=== PATIENT | male | born 1970 | race Hispanic/Latino ===

== ENCOUNTER 2017-11-10 08:39 | Observation (INO) | payer MEDICAID, OTHER ==
[2017-11-10 08:47] VITALS: BMI 25.8
[2017-11-10 10:07] LABS: BASO # 0.1 K/uL (0.0-0.2); BASO % 1.2 % (0.0-2.0); EOS # 0.1 K/uL (0.0-0.7); EOS % 2.2 % (0.0-4.0); HEMOGLOBIN 16.2 g/dL (12.0-18.0); LYMPH # 1.8 K/uL (1.0-4.3); LYMPH % 34.7 % (20.0-40.0); MEAN CORPUSCULAR HGB CONC 34.9 g/dL (33.0-37.0); MEAN PLATELET VOLUME 9.6 fl (7.2-11.7); MONO # 0.4 K/uL (0.0-0.8); MONO % 7.1 % (0.0-10.0); NEUT # 2.9 K/uL (1.8-7.0); NEUT % 54.8 % (50.0-75.0); NRBC % 0.1 % (0.0-0.0); RBC 5.38 Mil/uL (4.40-5.90); WHITE BLOOD COUNT 5.3 K/uL (4.8-10.8)
[2017-11-10 10:17] LABS: ALB/GLOB RATIO 1.4 (1.0-2.1); ALBUMIN 4.2 g/dL (3.5-5.0); ALT/SGPT 35 U/L (21-72); AST/SGOT 20 U/L (17-59); BLOOD UREA NITROGEN 14 mg/dl (9-20); CALCIUM 9.1 mg/dL (8.4-10.2); GFR AFRICAN-AMERICAN > 60; GFR NON-AFRICAN AMERICAN > 60
--- NOTE | 2017-11-10 10:47 | RAD ---
HISTORY: chest pain COMPARISON: No prior. TECHNIQUE: Chest PA and lateral FINDINGS: LUNGS: No active pulmonary disease. PLEURA: No significant pleural effusion identified. No pneumothorax apparent. CARDIOVASCULAR: Normal. OSSEOUS STRUCTURES: No significant abnormalities. VISUALIZED UPPER ABDOMEN: Normal. OTHER FINDINGS: None. IMPRESSION: No active disease.
--- NOTE | 2017-11-10 10:47 | ED PDOC ---
HPI: Chest Pain Time Seen by Provider: 11/10/17 08:45 Chief Complaint (Nursing): Chest Pain Chief Complaint (Provider): Chest Pain History Per: Patient History/Exam Limitations: no limitations Onset/Duration Of Symptoms: Days (x 2) Current Symptoms Are (Timing): Still Present Quality: Aching Exacerbating Factors: None Alleviating Factors: None Additional Complaint(s): 47 year old male presents to the ED with left sided, non radiating, aching chest pain since yesterday. Patient reports nothing alleviates or exacerbates that pain. He is here on a visa from [place]. Denies fever, shortness of breath and cough. PMD: none (in [place]) Past Medical History Reviewed: Historical Data, Nursing Documentation, Vital Signs Vital Signs: Last Vital Signs Temp 98.8 F 11/11/17 12:21 Pulse 63 11/11/17 12:21 Resp 20 11/11/17 12:21 BP 109/71 11/11/17 12:21 Pulse Ox 95 11/11/17 12:21 - Medical History PMH: No Chronic Diseases - Surgical History Surgical History: No Surg Hx - Family History Family History: States: Unknown Family Hx - Social History Current smoker - smoking cessation education provided: No Alcohol: None Drugs: Denies - Home Medications Home Medications: Ambulatory Orders Medication Instructions Recorded Aspirin [Ecotrin] 81 mg PO DAILY #30 tabec 11/11/17 MetFORMIN ER [Glucophage XR] 500 mg PO DAILY #30 ter 11/11/17 Rosuvastatin Calcium [Crestor] 20 mg PO DAILY #30 tablet 11/11/17 - Allergies Allergies/Adverse Reactions: Allergies Allergy/AdvReac Type Severity Reaction Status Date / Time No Known Allergies Allergy Verified 11/10/17 08:51 Review of Systems ROS Statement: Except As Marked, All Systems Reviewed And Found Negative Constitutional: Negative for: Fever Cardiovascular: Positive for: Chest Pain Respiratory: Negative for: Cough, Shortness of Breath Physical Exam - Reviewed Nursing Documentation Reviewed: Yes Vital Signs Reviewed: Yes - Physical Exam Appears: Positive for: Non-toxic, No Acute Distress Head Exam: Positive for: ATRAUMATIC, NORMAL INSPECTION, NORMOCEPHALIC Skin: Positive for: Normal Color, Warm, Dry Eye Exam: Positive for: EOMI, Normal appearance, PERRL Neck: Positive for: Normal, Painless ROM, Supple Cardiovascular/Chest: Positive for: Regular Rate, Rhythm. Negative for: Murmur Respiratory: Positive for: Normal Breath Sounds. Negative for: Respiratory Distress Gastrointestinal/Abdominal: Positive for: Normal Exam, Soft. Negative for: Tenderness Extremity: Positive for: Normal ROM. Negative for: Deformity Neurologic/Psych: Positive for: Alert, Oriented. Negative for: Motor/Sensory Deficits - Laboratory Results Result Diagrams: 11/11/17 04:20 11/11/17 04:20 - ECG O2 Sat by Pulse Oximetry: 97 Medical Decision Making Medical Decision Making: Time; 09:25 Initial Plan: --Chest x-ray --CMP --CBC --Troponin I -- ASA 325 mg PO Labs reveal no significant abnormalities. Time: 12:36 --Patient admitted to Dr. Aldana due to a history of elevated sugar in the past and chest pain. Scribe Attestation: Documented by Sara Landin, acting as a scribe for Naima Rodriguez MD Provider Scribe Attestation: All medical record entries made by the Scribe were at my direction and personally dictated by me. I have reviewed the chart and agree that the record accurately reflects my personal performance of the history, physical exam, medical decision making, and the department course for this patient. I have also personally directed, reviewed, and agree with the discharge instructions and disposition. Disposition - Clinical Impression Clinical Impression: Chest wall pain, Chest pain - Patient ED Disposition Is Patient to be Admitted: Yes Counseled Patient/Family Regarding: Studies Performed, Diagnosis, Need For Followup - Disposition Disposition Time: 12:05 Condition: FAIR - Pt Status Changed To: Hospital Disposition Of: Observation
--- NOTE | 2017-11-10 14:20 | CP.PCM.HP ---
History of Present Illness - History of Present Illness History of Present Illness: CC: chest pain HPI: 47 y/o man w/ no pmh presents to the ED w/ Chest pain. Patient reports chest pain started yesterday afternoon while commuting home from work. Patient initially went to urgent care center and was referred to go to ED to rule out ACS. Patient states pain is midsternal, pressure-like in nature, non-radiating , no previous episodes, intermittent, no medications taken, and no alleviating/ exacerbating factors. The patient is a former smoker, smoked 1 pack/day for 23 years. Patient denies alcohol and illegal drugs. Patient denies headaches, dizziness, abdominal pain, nausea, vomiting, diarrhea, dysuria, or fever. PMD: none, on work visa from [place] PMH: none meds: none PSH: none Fam: denies SOC: former smoker, quit 10 years ago, smoked 1 pack/day for 23 years, denies alcohol and illegal drugs ROS: 12 points assessed and negative unless otherwise reported in HPI Present on Admission - Present on Admission Any Indicators Present on Admission: No History of DVT/PE: No History of Uncontrolled Diabetes: No Urinary Catheter: No Decubitus Ulcer Present: No Review of Systems - Review of Systems All systems: reviewed and no additional remarkable complaints except - Constitutional Constitutional: absent: Chills, Fever, Headache - EENT Eyes: absent: Change in Vision - Cardiovascular Cardiovascular: As Per HPI, Chest Pain. absent: Palpitations, Pedal Edema - Respiratory Respiratory: absent: Dyspnea - Gastrointestinal Gastrointestinal: absent: Abdominal Pain, Diarrhea, Nausea, Vomiting - Genitourinary Genitourinary: absent: Dysuria - Integumentary Integumentary: absent: Rash - Neurological Neurological: absent: Dizziness, Headaches Past Patient History - Past Social History Alcohol: None Drugs: Denies - PSYCHIATRIC Hx Substance Use: No - SURGICAL HISTORY Hx Surgeries: No - ANESTHESIA Hx Anesthesia: No Hx Anesthesia Reactions: Yes Meds Allergies/Adverse Reactions: Allergies Allergy/AdvReac Type Severity Reaction Status Date / Time No Known Allergies Allergy Verified 11/10/17 08:51 Physical Exam - Constitutional Appears: Non-toxic, No Acute Distress - Head Exam Head Exam: ATRAUMATIC, NORMAL INSPECTION, NORMOCEPHALIC - Eye Exam Eye Exam: Normal appearance - ENT Exam ENT Exam: Mucous Membranes Moist - Neck Exam Neck exam: Positive for: Full Rom. Negative for: Tenderness - Respiratory Exam Respiratory Exam: Clear to Auscultation Bilateral. absent: Accessory Muscle Use , Decreased Breath Sounds, Rales, Rhonchi, Wheezes, Respiratory Distress - Cardiovascular Exam Cardiovascular Exam: REGULAR RHYTHM, RRR. absent: Tachycardia - GI/Abdominal Exam GI & Abdominal Exam: Normal Bowel Sounds, Soft. absent: Distended, Tenderness - Extremities Exam Extremities exam: Positive for: normal inspection. Negative for: calf tenderness - Neurological Exam Neurological exam: Alert, Oriented x3 - Skin Skin Exam: Dry, Intact, Normal Color, Warm Results - Vital Signs Recent Vital Signs: Last Vital Signs Temp 98.2 F 11/10/17 08:48 Pulse 59 L 11/10/17 13:44 Resp 20 11/10/17 13:44 BP 116/75 11/10/17 13:44 Pulse Ox 98 11/10/17 13:44 - Labs Result Diagrams: 11/10/17 09:59 11/10/17 09:59 Labs: Laboratory Results - last 24 hr 11/10/17 11/10/17 09:59 09:59 WBC 5.3 RBC 5.38 Hgb 16.2 Hct 46.3 MCV 86.0 MCH 30.0 MCHC 34.9 RDW 14.0 Plt Count 199 MPV 9.6 Neut % (Auto) 54.8 Lymph % (Auto) 34.7 [place] % (Auto) 7.1 Eos % (Auto) 2.2 Baso % (Auto) 1.2 Neut # (Auto) 2.9 Lymph # (Auto) 1.8 [place] # (Auto) 0.4 Eos # (Auto) 0.1 Baso # (Auto) 0.1 Sodium 142 Potassium 3.9 Chloride 107 Carbon Dioxide 22 Anion Gap 17 BUN 14 Creatinine 0.8 Est GFR ( Amer) > 60 Est GFR (Non-Af Amer) > 60 Random Glucose 122 H Calcium 9.1 Total Bilirubin 0.8 AST 20 ALT 35 Alkaline Phosphatase 53 Troponin I < 0.0120 Total Protein 7.3 Albumin 4.2 Globulin 3.1 Albumin/Globulin Ratio 1.4 Assessment & Plan (1) Chest pain Status: Acute - Assessment and Plan (Free Text) Plan: afebrile, non-tachycardic, normotensive EKG from Prompt MD: NSR, no acute ST elevation/depression EKG done in ED: NSR, no acute ST elevation/depression, no prolonged OR, QRS, QT , no abnormal T waves troponin <0.012 CBC and CMP WNL CXR: no active cardiopulmonary disease process protonix 20 mg PO daily f/u CBC, CMP, tropnonin x2 in AM prophylactic measures: DVT lovenox 40 mg SC daily, SCDs monitor for acute changes admit to Tele
[2017-11-10] MEDS ORDERED: Pneumococcal 23-Valent Vaccine IM ONE (15:48)
[2017-11-11 05:26] LABS: BASO # 0.1 K/uL (0.0-0.2); BASO % 1.2 % (0.0-2.0); EOS # 0.1 K/uL (0.0-0.7); EOS % 2.4 % (0.0-4.0); LYMPH # 1.9 K/uL (1.0-4.3); LYMPH % 33.6 % (20.0-40.0); MEAN CELL VOLUME 86.4 fl (80.0-94.0); MEAN CORPUSCULAR HEMOGLOBIN 30.4 pg (27.0-31.0); MEAN CORPUSCULAR HGB CONC 35.1 g/dL (33.0-37.0); MEAN PLATELET VOLUME 9.3 fl (7.2-11.7); MONO # 0.5 K/uL (0.0-0.8); NEUT % 53.8 % (50.0-75.0); RBC 5.26 Mil/uL (4.40-5.90); RED CELL DISTRIBUTION WIDTH 13.9 % (11.5-14.5); WHITE BLOOD COUNT 5.5 K/uL (4.8-10.8)
[2017-11-11 05:38] LABS: ALB/GLOB RATIO 1.6 (1.0-2.1); ALBUMIN 4.2 g/dL (3.5-5.0); ALT/SGPT 31 U/L (21-72); AST/SGOT 20 U/L (17-59); BLOOD UREA NITROGEN 14 mg/dl (9-20); GFR AFRICAN-AMERICAN > 60; GFR NON-AFRICAN AMERICAN > 60
[2017-11-11 07:52] VITALS: RESP 20
[2017-11-11] MEDS ORDERED: Pantoprazole 20 mg EC Tab PO SCH (09:00)
[2017-11-11] MEDS ORDERED: Enoxaparin 40 mg Syringe SC SCH (09:00)
--- NOTE | 2017-11-11 12:11 | CP.PCM.DIS ---
Provider - Provider Date of Admission: 11/10/17 12:36 Attending physician: Terence Aldana MD Time Spent in preparation of Discharge (in minutes): 15 Diagnosis - Discharge Diagnosis (1) Chest pain Status: Acute Hospital Course - Lab Results Lab Results: Most Recent Lab Values WBC 5.5 K/uL (4.8-10.8) 11/11/17 04:20 RBC 5.26 Mil/uL (4.40-5.90) 11/11/17 04:20 Hgb 16.0 g/dL (12.0-18.0) 11/11/17 04:20 Hct 45.5 % (35.0-51.0) 11/11/17 04:20 MCV 86.4 fl (80.0-94.0) 11/11/17 04:20 MCH 30.4 pg (27.0-31.0) 11/11/17 04:20 MCHC 35.1 g/dL (33.0-37.0) 11/11/17 04:20 RDW 13.9 % (11.5-14.5) 11/11/17 04:20 Plt Count 192 K/uL (130-400) 11/11/17 04:20 MPV 9.3 fl (7.2-11.7) 11/11/17 04:20 Neut % (Auto) 53.8 % (50.0-75.0) 11/11/17 04:20 Lymph % (Auto) 33.6 % (20.0-40.0) 11/11/17 04:20 [place] % (Auto) 9.0 % (0.0-10.0) 11/11/17 04:20 Eos % (Auto) 2.4 % (0.0-4.0) 11/11/17 04:20 Baso % (Auto) 1.2 % (0.0-2.0) 11/11/17 04:20 Neut # (Auto) 3.0 K/uL (1.8-7.0) 11/11/17 04:20 Lymph # (Auto) 1.9 K/uL (1.0-4.3) 11/11/17 04:20 [place] # (Auto) 0.5 K/uL (0.0-0.8) 11/11/17 04:20 Eos # (Auto) 0.1 K/uL (0.0-0.7) 11/11/17 04:20 Baso # (Auto) 0.1 K/uL (0.0-0.2) 11/11/17 04:20 Sodium 141 mmol/l (132-148) 11/11/17 04:20 Potassium 3.6 MMOL/L (3.6-5.0) 11/11/17 04:20 Chloride 107 mmol/L (98-107) 11/11/17 04:20 Carbon Dioxide 25 mmol/L (22-30) 11/11/17 04:20 Anion Gap 13 (10-20) 11/11/17 04:20 BUN 14 mg/dl (9-20) 11/11/17 04:20 Creatinine 0.8 mg/dl (0.8-1.5) 11/11/17 04:20 Est GFR ( Amer) > 60 11/11/17 04:20 Est GFR (Non-Af Amer) > 60 11/11/17 04:20 Random Glucose 113 mg/dL (75-110) H 11/11/17 04:20 Calcium 9.0 mg/dL (8.4-10.2) 11/11/17 04:20 Total Bilirubin 0.5 mg/dl (0.2-1.3) 11/11/17 04:20 AST 20 U/L (17-59) 11/11/17 04:20 ALT 31 U/L (21-72) 11/11/17 04:20 Alkaline Phosphatase 48 U/L (38-126) 11/11/17 04:20 Troponin I < 0.0120 ng/mL (0.00-0.120) 11/11/17 08:26 Total Protein 6.9 G/DL (6.3-8.2) 11/11/17 04:20 Albumin 4.2 g/dL (3.5-5.0) 11/11/17 04:20 Globulin 2.7 gm/dL (2.2-3.9) 11/11/17 04:20 Albumin/Globulin Ratio 1.6 (1.0-2.1) 11/11/17 04:20 Triglycerides 134 mg/DL (0-149) 11/11/17 10:58 Cholesterol 202 mg/dL (0-199) H 11/11/17 10:58 LDL Cholesterol Direct 121 mg/dL (0-129) 11/11/17 10:58 HDL Cholesterol 32 MG/DL (30-70) 11/11/17 10:58 TSH 3rd Generation 2.06 mIU/ML (0.46-4.68) 11/11/17 10:58 - Hospital Course Hospital Course: 47 y/o man w/ no pmh presents to the ED w/ Chest pain. Patient EKG in ED and repeat EKG next day were NSR with no acute changes. Patient's troponins were negative x3. Patient denies any episodes of chest pain since admission. Patient denies headaches, chest pain, SOB, abdominal pain, nausea, vomiting, diarrhea, dysuria, or fever. The patient has been seen, examined, and deemed medically fit for discharge home. Patient will be discharged w/ metformin, rosuvastatin, and aspirin. Patient will follow up w/ Dr. Aldana in 1 week. Discharge Exam - Head Exam Head Exam: ATRAUMATIC, NORMAL INSPECTION, NORMOCEPHALIC - Eye Exam Eye Exam: Normal appearance - ENT Exam ENT Exam: Mucous Membranes Moist - Neck Exam Neck exam: Full Rom - Respiratory Exam Respiratory Exam: Clear to PA & Lateral. absent: Accessory Muscle Use, Decreased Breath Sounds, Rales, Rhonchi, Wheezes, Respiratory Distress - Cardiovascular Exam Cardiovascular Exam: REGULAR RHYTHM. absent: Tachycardia - GI/Abdominal Exam GI & Abdominal Exam: Normal Bowel Sounds, Soft. absent: Distended, Tenderness - Extremities Exam Extremities exam: normal inspection - Neurological Exam Neurological exam: Alert, Normal Gait, Oriented x3 - Skin Skin Exam: Dry, Intact, Normal Color Discharge Plan - Discharge Medications Prescriptions: Aspirin [Ecotrin] 81 mg PO DAILY #30 tabec MetFORMIN ER [Glucophage XR] 500 mg PO DAILY #30 ter Rosuvastatin Calcium [Crestor] 20 mg PO DAILY #30 tablet - Follow Up Plan Condition: FAIR Disposition: HOME/ ROUTINE Instructions: Chest Pain That Is Not Caused by the Heart (DC), Chest Pain (DC) Additional Instructions: follow up w/ Dr Aldana in 1 week Referrals: Terence Aldana MD [Staff Provider] -
[2017-11-11 12:21] VITALS: BP 109/71; PULSE 63; TEMP 98.8
[2017-11-12 03:42] VITALS: O2SAT 97
== END 2017-11-11 13:24 | disposition home or self-care (01) ==
LOC: H.ER 08:39 → H.ERHOLD 12:36 → H.TEL 14:52
PROVIDERS: ADMIT Family Medicine; ATTEND Family Medicine
DX: R07.89 Other chest pain (principal); Z23 Encounter for immunization; Z79.82 Long term (current) use of aspirin; Z87.891 Personal history of nicotine dependence
CPT/HCPCS: 36415; 71046; 80053; 80061; 83036; 84443; 84484; 85025; 90471; 90732; 99285; G0378; J1650

== ENCOUNTER 2017-11-16 12:04 | Observation (INO) | payer OTHER ==
[2017-11-16 12:05] VITALS: BMI 25.8
[2017-11-16] MEDS ORDERED: Sodium Chloride 0.9% 500 ML IV STA (12:40)
--- NOTE | 2017-11-16 12:46 | ED PDOC ---
HPI: Chest Pain Time Seen by Provider: 11/16/17 12:22 Chief Complaint (Nursing): Chest Pain Chief Complaint (Provider): Chest pain History Per: Patient History/Exam Limitations: no limitations Onset/Duration Of Symptoms: Days (today morning) Current Symptoms Are (Timing): Gone Now Additional Complaint(s): Pt. with chest pain right side when he woke up in the morning. Went away after taking an aspirin. Pt. never had any other symptoms in the morning or now, specifically no dyspnea, weakness, headaches, dizziness, abd pain, leg pain, nausea, vomit. No hormone use. No long distance travel. Was admitted [address] Aldana and dc. Put on cholesterol med and metformin. Has appt with him this week. Past Medical History Reviewed: Nursing Documentation, Vital Signs Vital Signs: Last Vital Signs Temp Pulse 65 11/16/17 12:16 Resp 18 11/16/17 12:16 BP 136/71 11/16/17 12:16 Pulse Ox 96 11/16/17 12:47 - Medical History PMH: Diabetes (?), Hypercholesterolemia Denies: HIV - Surgical History Surgical History: No Surg Hx - Family History Family History: States: Unknown Family Hx - Home Medications Home Medications: Ambulatory Orders Medication Instructions Recorded Aspirin [Ecotrin] 81 mg PO DAILY #30 tabec 11/11/17 MetFORMIN ER [Glucophage XR] 500 mg PO DAILY #30 ter 11/11/17 Rosuvastatin Calcium [Crestor] 20 mg PO DAILY #30 tablet 11/11/17 - Allergies Allergies/Adverse Reactions: Allergies Allergy/AdvReac Type Severity Reaction Status Date / Time No Known Allergies Allergy Verified 11/16/17 12:16 Review of Systems ROS Statement: Except As Marked, All Systems Reviewed And Found Negative Cardiovascular: Positive for: Chest Pain Physical Exam - Reviewed Nursing Documentation Reviewed: Yes Vital Signs Reviewed: Yes - Physical Exam Appears: Positive for: Non-toxic, No Acute Distress Head Exam: Positive for: ATRAUMATIC, NORMAL INSPECTION, NORMOCEPHALIC Skin: Positive for: Normal Color, Warm, DRY Eye Exam: Positive for: EOMI, Normal appearance, PERRL ENT: Positive for: Normal ENT Inspection Neck: Positive for: Normal, Painless ROM Cardiovascular/Chest: Positive for: Regular Rate, Rhythm, Chest Non Tender. Negative for: Edema Respiratory: Positive for: CNT, Normal Breath Sounds Gastrointestinal/Abdominal: Positive for: Normal Exam, Soft. Negative for: Tenderness Back: Positive for: Normal Inspection. Negative for: L CVA Tenderness, R CVA Tenderness Extremity: Positive for: Normal ROM. Negative for: Tenderness, Pedal Edema Neurologic/Psych: Positive for: Alert, Oriented - Laboratory Results Result Diagrams: 11/16/17 13:00 11/16/17 13:00 Interpretation Of Abn Labs: no acute - ECG ECG: Positive for: Interpreted By Me, Viewed By Me ECG Rhythm: Positive for: Normal QRS, Normal ST Segment, Sinus Rhythm O2 Sat by Pulse Oximetry: 96 Pulse Ox Interpretation: Normal - Radiology X-Ray: Read By Radiologist X-Ray Interpretation: No Acute Disease - Progress ED Course And Treament: 1415: Spoke with Dr. Aldana. Pt. with repeat chest pain. Needs a stress test on a more urgent basis and more evaluation for ACS. Will admit as pt. failed outpt tx for chest pain control. Currently pain free. Dr. Aldana will admit. Took ASA today. Disposition - Clinical Impression Clinical Impression: Chest pain - Patient ED Disposition Is Patient to be Admitted: Yes Counseled Patient/Family Regarding: Studies Performed, Diagnosis - Disposition Disposition Time: 13:22 Condition: FAIR - Pt Status Changed To: Hospital Disposition Of: Observation - POA Present On Arrival: None Core Measure Indicators: Chest Pain
--- NOTE | 2017-11-16 12:57 | RAD ---
HISTORY: CHEST PAIN COMPARISON: Comparison made with prior chest radiograph dated 11/10/2017 FINDINGS: LUNGS: Low lung volumes,, crowded bronchovascular markings and mild bibasilar atelectasis. PLEURA: No significant pleural effusion identified, no pneumothorax apparent. CARDIOVASCULAR: Heart appears borderline enlarged OSSEOUS STRUCTURES: No significant abnormalities. VISUALIZED UPPER ABDOMEN: Normal. OTHER FINDINGS: None. IMPRESSION: Low lung volumes,, crowded bronchovascular markings and mild bibasilar atelectasis.
[2017-11-16 13:04] LABS: BASO # 0.1 K/uL (0.0-0.2); BASO % 1.1 % (0.0-2.0); EOS # 0.1 K/uL (0.0-0.7); EOS % 1.1 % (0.0-4.0); HEMOGLOBIN 15.5 g/dL (12.0-18.0); LYMPH # 1.5 K/uL (1.0-4.3); MEAN CELL VOLUME 86.4 fl (80.0-94.0); MEAN CORPUSCULAR HEMOGLOBIN 29.7 pg (27.0-31.0); MEAN CORPUSCULAR HGB CONC 34.4 g/dL (33.0-37.0); MEAN PLATELET VOLUME 9.6 fl (7.2-11.7); MONO # 0.4 K/uL (0.0-0.8); NEUT # 4.2 K/uL (1.8-7.0); NEUT % 66.8 % (50.0-75.0); RBC 5.21 Mil/uL (4.40-5.90); RED CELL DISTRIBUTION WIDTH 13.4 % (11.5-14.5); WHITE BLOOD COUNT 6.2 K/uL (4.8-10.8)
[2017-11-16 13:12] LABS: PARTIAL THROMBOPLASTIN TIME 31.6 Seconds (25.6-37.1); PROTHROMBIN TIME 11.2 Seconds (9.8-13.1)
[2017-11-16 13:24] LABS: ALB/GLOB RATIO 1.4 (1.0-2.1); ALBUMIN 4.2 g/dL (3.5-5.0); ALT/SGPT 29 U/L (21-72); AST/SGOT 23 U/L (17-59); BLOOD UREA NITROGEN 18 mg/dl (9-20); CALCIUM 8.9 mg/dL (8.4-10.2); GFR AFRICAN-AMERICAN > 60; GFR NON-AFRICAN AMERICAN > 60
--- NOTE | 2017-11-17 08:56 | CARD ---
APPROVED REPORT EKG Measurement Heart [id number] <Conclusion> Normal sinus rhythm Normal ECG
[2017-11-17 16:28] VITALS: RESP 16; O2SAT 95
--- NOTE | 2017-11-17 19:41 | CP.PCM.CON ---
History of Present Illness - History of Present Illness History of Present Illness: I was jenniferjed to see patient by Dr Aldana. Patient is a 47 year old male with PMH HTN, DM, who presents with chest pain. his symptoms started one week ago, and he was noted to have substernal chest pressure. The patient was discharged home with negative cardiac enzymes. His symptoms recurred and he was readmitted. The patient describes associated dyspnea. The patient is pain free currently Review of Systems - Constitutional Constitutional: absent: As Per HPI, Anorexia, Chills, Daytime Sleepiness, Excessive Sweating, Fatigue, Fever, Frequent Falls, Headache, Increased Appetite , Lethargy, Malaise, Night Sweats, Snoring, Sleep Apnea, Weight Gain, Weight Loss, Weakness, Other - EENT Eyes: absent: As Per HPI, Blind Spots, Blurred Vision, Change in Vision, Decreased Night Vision, Diplopia, Discharge, Dry Eye, Exophthalmos, Floaters, Irritation, Itchy Eyes, Loss of Peripheral Vision, Pain, Photophobia, Requires Corrective Lenses, Sees Flashes, Spots in Vision, Tunnel Vision, Other Visual Disturbances, Loss of Vision, Other Ears: absent: As Per HPI, Decreased Hearing, Ear Discharge, Ear Pain, Tinnitus, Abnormal Hearing, Disequilibrium, Dizziness, Other Nose/Mouth/Throat: absent: As Per HPI, Epistaxis, Nasal Congestion, Nasal Discharge, Nasal Obstruction, Nasal Trauma, Nose Pain, Post Nasal Drip, Sinus Pain, Sinus Pressure, Bleeding Gums, Change in Voice, Dental Pain, Dry Mouth, Dysphagia, Halitosis, Hoarsness, Lip Swelling, Mouth Lesions, Mouth Pain, Odynophagia, Sore Throat, Throat Swelling, Tongue Swelling, Facial Pain, Neck Pain, Neck Mass, Other - Cardiovascular Cardiovascular: Chest Pain - Respiratory Respiratory: Dyspnea - Gastrointestinal Gastrointestinal: absent: As Per HPI, Abdominal Pain, Belching, Bloating, Change in Bowel Habits, Change in Stool Character, Coffee Ground Emesis, Constipation, Cramping, Diarrhea, Dyspepsia, Dysphagia, Early Satiety, Excessive Flatus, Fecal Incontinence, Heartburn, Hematemesis, Hematochezia, Loose Stools, Melena, Nausea, Odynophagia, Temesmus, Vomiting, Other - Genitourinary Genitourinary: absent: As Per HPI, Change in Urinary Stream, Difficulty Urinating, Dysuria, Flank Pain, Hematuria, Pyuria, Nocturia, Urinary Incontinence, Urinary Frequency, Urinary Hesitance, Urinary Urgency, Voiding Freq/Small Amts, Freq UTI, Hx Renal/Bladder Calculi, Hx /Renal Surgery, Bladder Distension, Other - Musculoskeletal Musculoskeletal: absent: As Per HPI, Abnormal Gait, Arthralgias, Atrophy, Back Pain, Deformity, Joint Swelling, Limited Range of Motion, Loss of Height, Muscle Cramps, Muscle Weakness, Myalgias, Neck Pain, Numbness, Radiating Pain into Limb, Stiffness, Tingling, Other - Integumentary Integumentary: absent: As Per HPI, Acne, Alopecia, Bleeding Lesions, Change in Hair, Change in Nails, Change in Pigmentation, Changing Lesions, Dry Skin, Erythema, Furuncle, Hirsutism, Lesions, New Lesions, Non-Healing Lesions, Photosensitivity, Pruritus, Rash, Skin Pain, Skin Ulcer, Sores, Striae, Swelling , Unusual Bruising, Wounds, Jaundice, Other - Neurological Neurological: absent: As Per HPI, Abnormal Gait, Abnormal Hearing, Abnormal Movements, Abnormal Speech, Behavioral Changes, Burning Sensations, Confusion, Convulsions, Disequilibrium, Dizziness, Numbness, Focal Weakness, Frequent Falls , Headaches, Lack of Coordination, Loss of Vision, Memory Loss, Paresthesias, Radicular Pain, Restless Legs, Sensory Deficit, Syncope, Tingling, Tremor, Vertigo, Weakness, Other Visual Disturbances, Other - Psychiatric Psychiatric: absent: As Per HPI, Abnormal Sleep Pattern, Anhedonia, Anxiety, Auditory Hallucinations, Behavioral Changes, Change in Appetite, Change in Libido, Confusion, Depression, Difficulty Concentrating, Hallucinations, Homicidal Ideation, Hopelessness, Irritability, Memory Loss, Mood Swings, Panic Attacks, Paranoia, Suicidal Ideation, Visual Hallucinations, Tactile Hallucinations, Other - Endocrine Endocrine: absent: As Per HPI, Change in Body Appearance, Change in Libido, Cold Intolorance, Deepening of Voice, Excessive Sweating, Fatigue, Flushing, Heat Intolorance, Increase in Ring/Shoe/Hat Size, Palpitations, Polydipsia, Polyphagia, Polyuria, Other - Hematologic/Lymphatic Hematologic: absent: As Per HPI, Easy Bleeding, Easy Bruising, Lymphadenopathy, Other Past Patient History - Past Medical History & Family History Past Medical History?: No - Past Social History Smoking Status: cigars - CARDIAC Hx Hypercholesterolemia: Yes - PULMONARY Hx Respiratory Disorders: No - NEUROLOGICAL Hx Neurological Disorder: No - HEENT Hx HEENT Problems: No - RENAL Hx Chronic Kidney Disease: No - ENDOCRINE/METABOLIC Hx Diabetes Mellitus Type 2: Yes - HEMATOLOGICAL/ONCOLOGICAL Hx Blood Disorders: No Hx AIDS: No Hx Human Immunodeficiency Virus (HIV): No - INTEGUMENTARY Hx Dermatological Problems: No - MUSCULOSKELETAL/RHEUMATOLOGICAL Hx Musculoskeletal Disorders: No Hx Falls: No - GASTROINTESTINAL Hx Gastrointestinal Disorders: No - GENITOURINARY/GYNECOLOGICAL Hx Genitourinary Disorders: No - PSYCHIATRIC Hx Psychophysiologic Disorder: No Hx Substance Use: No - SURGICAL HISTORY Hx Surgeries: No - ANESTHESIA Hx Anesthesia: No Meds Allergies/Adverse Reactions: Allergies Allergy/AdvReac Type Severity Reaction Status Date / Time No Known Allergies Allergy Verified 11/16/17 12:16 - Medications Medications: Current Medications Aspirin (Ecotrin) 81 mg PO DAILY [facility] Last Admin: 11/17/17 12:02 Dose: 81 mg Atorvastatin Calcium (Lipitor) 40 mg PO DAILY [facility] Last Admin: 11/17/17 12:03 Dose: 40 mg Metformin HCl (Glucophage) 250 mg PO BIDAC [facility] Last Admin: 11/17/17 17:27 Dose: 250 mg Physical Exam - Constitutional Appears: Non-toxic - Head Exam Head Exam: NORMAL INSPECTION - Eye Exam Eye Exam: Normal appearance - ENT Exam ENT Exam: Mucous Membranes Moist - Neck Exam Neck exam: Positive for: Full Rom - Respiratory Exam Respiratory Exam: NORMAL BREATHING PATTERN - Cardiovascular Exam Cardiovascular Exam: REGULAR RHYTHM - GI/Abdominal Exam GI & Abdominal Exam: Normal Bowel Sounds - Rectal Exam Rectal Exam: Deferred - Extremities Exam Extremities exam: Negative for: pedal edema - Back Exam Back exam: NORMAL INSPECTION - Neurological Exam Neurological exam: Alert, Oriented x3 - Psychiatric Exam Psychiatric exam: Normal Affect - Skin Skin Exam: Normal Color Results - Vital Signs Recent Vital Signs: Last Vital Signs Temp 98.6 F 11/17/17 16:27 Pulse 68 11/17/17 16:27 Resp 16 11/17/17 16:27 BP 107/66 11/17/17 16:27 Pulse Ox 95 11/17/17 16:27 - Labs Result Diagrams: 11/16/17 13:00 11/16/17 13:00 Labs: Laboratory Results - last 24 hr 11/16/17 11/16/17 11/17/17 21:13 21:21 04:20 POC Glucose (mg/dL) 87 Troponin I < 0.0120 < 0.0120 11/17/17 11/17/17 11/17/17 06:32 11:47 16:02 POC Glucose (mg/dL) 79 97 93 Troponin I - EKG Data EKG Interpreted by: Myself EKG shows normal: Sinus rhythm Assessment & Plan (1) Chest pain Assessment and Plan: I reviewed the stress test with the patient. There is no evidence of myocardial ischemia. Left ventricular function is normal. I discussed medical therapy and blood pressure control Patient is stable for discharge. Status: Acute (2) HTN (hypertension) Status: Acute (3) Diabetes Assessment and Plan: management of blood sugar. Status: Acute
[2017-11-17 20:13] VITALS: BP 112/72; PULSE 57; TEMP 98.3
--- NOTE | 2017-11-17 23:18 | CP.PCM.HP ---
History of Present Illness - History of Present Illness History of Present Illness: This is a 47 y/o male admitted for chest while at rest. He denies having any SOB Claims that he got partial relief after taking aspirin. Pain persisted hence sought ER eval. he was recently admitted for the same reason. His EKG and troponins were both normal. Medical Hx DM 2 HTN Present on Admission - Present on Admission Any Indicators Present on Admission: No History of DVT/PE: No History of Uncontrolled Diabetes: No Urinary Catheter: No Decubitus Ulcer Present: No Past Patient History - Past Medical History & Family History Past Medical History?: No - Past Social History Smoking Status: cigars - CARDIAC Hx Hypercholesterolemia: Yes - PULMONARY Hx Respiratory Disorders: No - NEUROLOGICAL Hx Neurological Disorder: No - HEENT Hx HEENT Problems: No - RENAL Hx Chronic Kidney Disease: No - ENDOCRINE/METABOLIC Hx Diabetes Mellitus Type 2: Yes - HEMATOLOGICAL/ONCOLOGICAL Hx Blood Disorders: No Hx AIDS: No Hx Human Immunodeficiency Virus (HIV): No - INTEGUMENTARY Hx Dermatological Problems: No - MUSCULOSKELETAL/RHEUMATOLOGICAL Hx Musculoskeletal Disorders: No Hx Falls: No - GASTROINTESTINAL Hx Gastrointestinal Disorders: No - GENITOURINARY/GYNECOLOGICAL Hx Genitourinary Disorders: No - PSYCHIATRIC Hx Psychophysiologic Disorder: No Hx Substance Use: No - SURGICAL HISTORY Hx Surgeries: No - ANESTHESIA Hx Anesthesia: No Meds Allergies/Adverse Reactions: Allergies Allergy/AdvReac Type Severity Reaction Status Date / Time No Known Allergies Allergy Verified 11/16/17 12:16 Physical Exam - Head Exam Head Exam: NORMAL INSPECTION - Eye Exam Eye Exam: Normal appearance - Respiratory Exam Respiratory Exam: Clear to Auscultation Bilateral - Cardiovascular Exam Cardiovascular Exam: REGULAR RHYTHM - GI/Abdominal Exam GI & Abdominal Exam: Normal Bowel Sounds - Neurological Exam Neurological exam: CN II-XII Intact, Oriented x3 Results - Vital Signs Recent Vital Signs: Last Vital Signs Temp 98.3 F 11/17/17 20:12 Pulse 57 L 11/17/17 20:12 Resp 16 11/17/17 20:12 BP 112/72 11/17/17 20:12 Pulse Ox 95 11/17/17 20:12 - Labs Result Diagrams: 11/16/17 13:00 11/16/17 13:00 Labs: Laboratory Results - last 24 hr 11/16/17 11/17/17 11/17/17 21:21 04:20 06:32 POC Glucose (mg/dL) 87 79 Troponin I < 0.0120 11/17/17 11/17/17 11/17/17 11:47 16:02 21:21 POC Glucose (mg/dL) 97 93 75 Troponin I Assessment & Plan (1) Chest pain Status: Acute (2) Diabetes Status: Acute - Assessment and Plan (Free Text) Plan: troponin q 8 x 3 cardiology stres test
--- NOTE | 2017-11-17 23:20 | CP.PCM.DIS ---
Provider - Provider Date of Admission: 11/16/17 14:23 Attending physician: Terence Aldana MD Time Spent in preparation of Discharge (in minutes): 25 Diagnosis - Discharge Diagnosis (1) Chest pain Status: Acute (2) Diabetes Status: Acute Hospital Course - Lab Results Lab Results: Most Recent Lab Values WBC 6.2 K/uL (4.8-10.8) 11/16/17 13:00 RBC 5.21 Mil/uL (4.40-5.90) 11/16/17 13:00 Hgb 15.5 g/dL (12.0-18.0) 11/16/17 13:00 Hct 45.0 % (35.0-51.0) 11/16/17 13:00 MCV 86.4 fl (80.0-94.0) 11/16/17 13:00 MCH 29.7 pg (27.0-31.0) 11/16/17 13:00 MCHC 34.4 g/dL (33.0-37.0) 11/16/17 13:00 RDW 13.4 % (11.5-14.5) 11/16/17 13:00 Plt Count 191 K/uL (130-400) 11/16/17 13:00 MPV 9.6 fl (7.2-11.7) 11/16/17 13:00 Neut % (Auto) 66.8 % (50.0-75.0) 11/16/17 13:00 Lymph % (Auto) 24.0 % (20.0-40.0) 11/16/17 13:00 Hardin % (Auto) 7.0 % (0.0-10.0) 11/16/17 13:00 Eos % (Auto) 1.1 % (0.0-4.0) 11/16/17 13:00 Baso % (Auto) 1.1 % (0.0-2.0) 11/16/17 13:00 Neut # (Auto) 4.2 K/uL (1.8-7.0) 11/16/17 13:00 Lymph # (Auto) 1.5 K/uL (1.0-4.3) 11/16/17 13:00 Hardin # (Auto) 0.4 K/uL (0.0-0.8) 11/16/17 13:00 Eos # (Auto) 0.1 K/uL (0.0-0.7) 11/16/17 13:00 Baso # (Auto) 0.1 K/uL (0.0-0.2) 11/16/17 13:00 PT 11.2 Seconds (9.8-13.1) 11/16/17 13:00 INR 1.0 (0.9-1.2) 11/16/17 13:00 APTT 31.6 Seconds (25.6-37.1) 11/16/17 13:00 Sodium 142 mmol/l (132-148) 11/16/17 13:00 Potassium 3.9 MMOL/L (3.6-5.0) 11/16/17 13:00 Chloride 109 mmol/L (98-107) H 11/16/17 13:00 Carbon Dioxide 20 mmol/L (22-30) L 11/16/17 13:00 Anion Gap 17 (10-20) 11/16/17 13:00 BUN 18 mg/dl (9-20) 11/16/17 13:00 Creatinine 0.8 mg/dl (0.8-1.5) 11/16/17 13:00 Est GFR ( Amer) > 60 11/16/17 13:00 Est GFR (Non-Af Amer) > 60 11/16/17 13:00 POC Glucose (mg/dL) 75 mg/dL (65-110) 11/17/17 21:21 Random Glucose 99 mg/dL (75-110) 11/16/17 13:00 Calcium 8.9 mg/dL (8.4-10.2) 11/16/17 13:00 Total Bilirubin 0.8 mg/dl (0.2-1.3) 11/16/17 13:00 AST 23 U/L (17-59) 11/16/17 13:00 ALT 29 U/L (21-72) 11/16/17 13:00 Alkaline Phosphatase 59 U/L (38-126) 11/16/17 13:00 Troponin I < 0.0120 ng/mL (0.00-0.120) 11/17/17 04:20 Total Protein 7.4 G/DL (6.3-8.2) 11/16/17 13:00 Albumin 4.2 g/dL (3.5-5.0) 11/16/17 13:00 Globulin 3.1 gm/dL (2.2-3.9) 11/16/17 13:00 Albumin/Globulin Ratio 1.4 (1.0-2.1) 11/16/17 13:00 - Hospital Course Hospital Course: Patient was admitted for recurrence of chest pain EKG and all sets of troponins were normal Stress test was also normal. He was seen by Dr Nickerson and cleared the patient to go home. He was advised to continue with the same home medications. Discharge Exam - Head Exam Head Exam: NORMAL INSPECTION - Eye Exam Eye Exam: Normal appearance - Respiratory Exam Respiratory Exam: NORMAL BREATHING PATTERN - Cardiovascular Exam Cardiovascular Exam: REGULAR RHYTHM - GI/Abdominal Exam GI & Abdominal Exam: Normal Bowel Sounds Discharge Plan - Follow Up Plan Condition: STABLE Disposition: HOME/ ROUTINE Instructions: Chest Pain Additional Instructions: follow up in office in 1 week
--- NOTE | 2017-11-18 08:14 | CARD ---
APPROVED REPORT Protocol: ROBIN Test Type: Treadmill Stress Test Attending Physician: Dr. DR. CALLAHAN Referring Physician: Dr. Dr Nickerson Technologist: MAKAYLA SU Test Indications: Chest Pain Medications: Aspirin 81mg Metformin 250 Atorvastatin 40mg Medical History: Cholesterol, Diabetes, Target HR: 172 bpm Resting ECG: normal Resting Heart Rate: 77 bpm Resting Blood Pressure: 122/78mmHg submaximum (85%): 146 bpm TEST SUMMARY [id number]/78.0. [id number]/[id number]. PRETESTHYPERV.00:[id number]/78.0. PRETESTWARM-[id number]:[id number]/70.0. EXERCISESTAGE 103:[id number]/80.0. EXERCISESTAGE 203:[id number]/80.0. EXERCISESTAGE 303:[id number]/80.0. EXERCISESTAGE 400:[id number]/80.0. [id number]:[id number]/90.0. POST EXERCISE Reason for Termination: Fatigue Target HR: NoMax HR: 160 bpm93% of Maximum Predicted HR: 172 bpm Exercise duration: 4 Stage09:28 min:secExercise capacity: 10.8METs Max Blood Pressure: 190/80mmHg Blood Pressure response to exercise: normal resting BP - appropriate response Heart Rate response to exercise: appropriate Chest Pain: NononeAngina index: 0 Arrhythmia: Nonone ST Change: NononeDeviation: 0 mm INTERPRETATION Stress EKG Conclusion: This 47-year-old man underwent this study to rule out evidence of coronary artery disease. The patient was hospitalized with atypical chest pain and an acute coronary syndrome was ruled out. The patient denied any history of hypertension or diabetes and had never experienced any effort related chest pain. There was no prior history of myocardial infarction. His resting electric cart a gram showed sinus rhythm with a normal EKG pattern. His resting blood pressure was 116/70 mmHg. His cardiac auscultation was unremarkable. On Robin protocol he was able to finish 28 seconds of stage IV effort when severe fatigue forced an end to exercise. There was neither chest pain not ischemic electro-Cardiologic abnormality. The peak heart rate achieved was 160 bpm which corresponded to 88% of his predicted max. His blood pressure response to exercise was appropriate reaching 190/80 mmHg at peak effort. There were no arrhythmias. The peak workload achieved was10.8 METs. Upon termination of exercise, his heart rate and blood pressure recovery were normal. The patient left the stress lab symptom free and hemodynamically stable. Impression: The patient had good effort tolerance. His blood pressure response to exercise was appropriate. At 88% of his predicted maximum heart rate, no evidence of myocardial ischemia was detected.
== END 2017-11-17 21:55 | disposition home or self-care (01) ==
LOC: H.ER 12:04 → H.ERHOLD 14:23 → H.TEL 18:29
PROVIDERS: ADMIT Family Medicine; ATTEND Family Medicine
DX: R07.89 Other chest pain (principal); E11.9 Type 2 diabetes mellitus without complications; E78.00 Pure hypercholesterolemia, unspecified; I10 Essential (primary) hypertension; Z79.82 Long term (current) use of aspirin; Z79.84 Long term (current) use of oral hypoglycemic drugs; Z79.899 Other long term (current) drug therapy
CPT/HCPCS: 36415; 71045; 80053; 82948; 84484; 85025; 85610; 85730; 93005; 93017; 99285; G0378; J7040